=== PATIENT | female | born 1965 | race Caucasian/White ===

== ENCOUNTER → 2021-10-06 15:51 | Outpatient (CLI) | payer BC, SELFPAY ==
--- NOTE | 2021-10-08 14:53 | PC.NURSE ---
LM x1.
== END ==
PROVIDERS: Visit Provider Nurse Practitioner
DX: U07.1 COVID-19 (principal)
CPT/HCPCS: C9803; U0003; U0005

== ENCOUNTER 2025-04-06 18:47 | Emergency (ER) | payer BC, SELFPAY ==
[2025-04-06] VITALS (7 sets, daily range): BP systolic 143–187; BP diastolic 75–96; PULSE 65–80; RESP 11–18; TEMP 36.6–36.9; O2SAT 96–99; BMI 26.5
--- NOTE | 2025-04-06 18:55 | ECG_ITS ---
APPROVED REPORT Exam: Resting ECG HR:76 bpm ECG Measurements Heart Rate 76 AXES OR 150 P 52 QRSd 75 QRS 60 QT 379 T 33 QTc 410 Conclusion SINUS RHYTHM NONSPECIFIC T-WAVE ABNORMALITY BORDERLINE ECG WARNING: DATA QUALITY MAY AFFECT INTERPRETATION Electronically signed by : GUIDO WILCOX, 04/08/2025 12:39:00
[2025-04-06] MEDS: LACTATED RINGERS 1000ML 1,000 ML 999 ML IV (19:12)
[2025-04-06 19:17] LABS: Basophils % 0.3 % (0.1-2.0); Eosinophils % 0.4 % (0.1-12.0); Hematocrit 41.8 % (37.0-47.0); Hemoglobin 14.5 g/dL (12.2-16.2); Immature Granulocytes # 0.02 10^3uL; Immature Granulocytes % 0.2 %; Lymphocytes # 2.9 K/mm3 (0.7-4.5); Lymphocytes % 30.1 % (10-50); Mean Corpuscular HGB Conc 34.7 g/dL (31.8-35.4); Mean Corpuscular Hemoglobin 34.7 pg (27.0-31.2); Mean Platelet Volume 10.3 fl (7.4-10.4); Monocytes # 0.5 K/mm3 (0.1-1.0); Monocytes % 4.9 % (1.7-9.3); Neutrophils # 6.2 K/mm3 (1.8-7.8); Neutrophils % 64.1 % (37.0-80.0); Nucleated Red Blood Cells # 0 10^3/uL; Nucleated Red Blood Cells % 0 %; Platelet Count 214 K/mm3 (142-424); Red Blood Count 4.18 M/mm3 (4.20-5.40); Red Cell Distribution Width 12.9 % (11.5-17.5); Red Cell Distribution Width-SD 47.7 fL; White Blood Count 9.6 K/mm3 (4.8-10.8)
--- NOTE | 2025-04-06 19:17 | HMH.EDGENADL ---
Discharge Plan Disposition Patient Disposition: Home, Self-Care Prescriptions Prescriptions: New cefadroxil 500 mg capsule 500 mg PO BID 5 Days Qty: 10 0RF Referrals Follow up/Referrals: Teodoro Tong [Primary Care Provider, Medical] - See instructions Activity Restrictions/Add. Instructions Additional Instructions/Restrictions: Take antibiotics as prescribed. Follow-up with primary care doctor. Please return to the ER with any new, concerning, worsening symptoms. Clinical Impressions Clinical Impression: Dizziness UTI (urinary tract infection) Qualifiers: Urinary tract infection type: acute cystitis Hematuria presence: without hematuria Qualified Code(s): N30.00 - Acute cystitis without hematuria Print Language Print Language: Dominican Discharge ED Provider: Javon Buck General Adult HPI General Chief complaint: Dizziness Stated complaint: Dizziness Time Seen by Provider: 04/06/25 18:50 Mode of Arrival: Ambulatory Source of Information: Patient Description of Symptoms (Recalled from ER Triage Doc. by RN): pt presents to the ED with dizziness that started yesterday morning. pt reports nausea and having a poor appeite. pt reports that she gets really dizzy when she changes positions. No chest pain or shortness of breath noted. Pt hx of DVT and PE. History of Present Illness HPI narrative: This is a 59-year-old female with a history of VTE on Xarelto who presents with dizziness. States that it began yesterday morning. States that it is worse whenever she gets up and starts walking. Feels lightheaded and slightly unsteady. Denies any chest pain, shortness of breath, palpitations. States that she has not been eating or drinking very well lately. Related Data Previous Rx's ?Medication ?Instructions ?Recorded cefadroxil 500 mg capsule 500 mg PO BID 5 days #10 caps 04/06/25 Allergies Allergy/AdvReac Type Severity Reaction Status Date / Time No Known Allergies Allergy Verified 04/06/25 18:22 [facility] Disclaimer: The information contained in this section may have been updated after the patient was seen, as this information can be updated by other users. Medical History (Updated 04/06/25 @ 20:32 by Javon Buck MD) Dizziness Social History (Updated 04/06/25 @ 18:46 by Tami Araiza APRN) Smoking Status: Never smoker alcohol intake: never current occupational status: employed Travel in the last 8 weeks?: None Have you lived/traveled outside [place] in past 30 days?: No Contact w/someone who lives/traveled outside [place] past 30 days?: No Exposure to someone with infectious disease in past 14 days?: No Do you have a fever (greater than 100.4 F or 38 C)?: No Have you tested positive for COVID-19?: No Exposed to someone with COVID-19 in past 14 days?: No Do you have a sore throat?: No Do you have a cough?: No Do you have any weakness?: No Do you have any diarrhea?: No Are you experiencing any unusual bleeding?: No Do you have any muscle aches/pain?: No Do you have any abdominal pain?: No Are you experiencing loss of taste or smell?: No ROS Obtained: Yes All systems reviewed & no additional complaints except as documented Physical Exam General General appearance: alert and in no apparent distress Head Head exam: atraumatic Eye Eye exam: Present normal appearance, PERRL and EOMI Neck Neck exam: Present normal inspection and full ROM Chest Chest inspection: Present symmetric chest wall rise Respiratory Respiratory exam: Present normal lung sounds bilaterally; Absent respiratory distress Cardiovascular Cardiovascular exam: Present regular rate and normal rhythm Abdominal Exam Abdominal exam: Present soft; Absent distention Extremities Exam Extremities exam: Present normal inspection Neurological Exam Neurological exam: Present alert, oriented X3, normal gait and other (Negative Romberg) Psychiatric Psychiatric exam: Present normal affect and normal mood Skin Skin exam: Present warm and dry Medical Decision Making Medical Records Medical records reviewed: Yes I reviewed the patient's medical records. Screening: Per USPSTF and CDC recommendations, given the prevalence of disease in our region, it is our hospital?s policy to screen for HIV and viral Hepatitis for all patients aged 18 and over and those with ongoing risk factors. Iggy Inquiry Pt receiving controlled substance: No Vital Signs: 04/06/25 19:00 04/06/25 19:00 04/06/25 19:04 Temperature 98.5 F Temperature Source Oral Pulse Rate 77 70 Pulse Rate [Right] 80 Respiratory Rate 17 Blood Pressure 184/95 H 177/90 H Blood Pressure [Right Arm] 187/96 H Blood Pressure Mean Blood Pressure Mean [Right Arm] 126 Blood Pressure Source Blood Pressure Source [Right Arm] Automatic Cuff Blood Pressure Position Blood Pressure Position [Right Arm] Supine 02 Sat by Pulse Oximetry 99 98 98 Oxygen Delivery Method Room Air Room Air Room Air 04/06/25 19:05 04/06/25 19:15 04/06/25 19:31 Temperature 98.5 F Temperature Source Oral Pulse Rate 80 65 69 Pulse Rate [Right] Respiratory Rate 17 12 11 L Blood Pressure 187/96 H 153/87 H 143/75 H Blood Pressure [Right Arm] Blood Pressure Mean Blood Pressure Mean [Right Arm] Blood Pressure Source Automatic Cuff Blood Pressure Source [Right Arm] Blood Pressure Position Supine Blood Pressure Position [Right Arm] 02 Sat by Pulse Oximetry 99 98 96 Oxygen Delivery Method Room Air Room Air Room Air 04/06/25 20:36 04/06/25 20:38 Temperature 97.9 F Temperature Source Pulse Rate 80 Pulse Rate [Right] Respiratory Rate 18 Blood Pressure 151/88 H 151/88 H Blood Pressure [Right Arm] Blood Pressure Mean 116 Blood Pressure Mean [Right Arm] Blood Pressure Source Blood Pressure Source [Right Arm] Blood Pressure Position Blood Pressure Position [Right Arm] 02 Sat by Pulse Oximetry Oxygen Delivery Method Room Air Room Air Lab Data Lab Results 04/06/25 19:06: WBC 9.6, RBC 4.18 L, Hgb 14.5, Hct 41.8, MCV 100.0 H, MCH 34.7 H, MCHC 34.7, RDW 12.9, Plt Count 214, MPV 10.3, Neut % (Auto) 64.1, Lymph % (Auto) 30.1, Starke % (Auto) 4.9, Eos % (Auto) 0.4, Baso % (Auto) 0.3, Neut # (Auto) 6.2, Lymph # (Auto) 2.9, Starke # (Auto) 0.5, Eos # (Auto) 0.0, Baso # (Auto) 0.0, Sodium 140, Potassium 3.9, Chloride 107, Carbon Dioxide 29, Anion Gap 7.9, BUN 10, Creatinine 0.80, Estimated Creat Clear 79, Estimated GFR 73, Est GFR ( Amer) 89, Glucose 86, Calcium 9.1, Magnesium 2.2, Total Bilirubin 0.7, AST 22, ALT 16, Alkaline Phosphatase 107, Total Protein 7.3, Albumin 4.3, Globulin 3.0, Albumin/Globulin Ratio 1.4, HCV Ab TARAH w/Rflx PCR Qn Negative, HIV Ag/Ab Combo Qual Negative 04/06/25 19:53: Urine Color Yellow, Urine Appearance Clear, Urine pH 6.0, Ur Specific Sawyer 1.025, Urine Protein Negative, Urine Glucose (UA) Negative, Urine Ketones Negative, Urine Blood Negative, Urine Nitrate Positive A, Urine Bilirubin Negative, Urine Urobilinogen 0.2, Ur Leukocyte Esterase Negative, Urine RBC Occasional, Urine WBC 10-20, Ur Squamous Epith Cells 5-10, Urine Bacteria 4+ 04/06/25 19:06 04/06/25 19:06 Orders (Tests/Meds): ED MEDICATIONS Discontinued Medications Generic Name Dose Route Start Last Admin Trade Name Freq PRN Reason Stop Dose Admin Lactated Ringer's 1,000 mls @ 999 mls/hr 04/06/25 19:01 04/06/25 19:12 Lactated Ringer's 1000 Ml Bag IV 04/06/25 20:01 999 mls/hr .Q1H1M ONE Administration ORDERS Category Date Time Status CBC w/Auto Diff [Complete Blood Count Auto Diff] Stat Lab 04/06/25 19:06 Completed CMP [Comprehensive Metabolic Panel] Stat Lab 04/06/25 19:06 Completed HIV Combo Stat Lab 04/06/25 19:06 Completed Hepatitis C Ab Qual. W/ RFX Stat Lab 04/06/25 19:06 Completed Magnesium Stat Lab 04/06/25 19:06 Completed UA [Urinalysis and Microscopic] Stat Lab 04/06/25 19:53 Completed Urine Culture Stat Micro 04/06/25 19:53 Received ECG Data Tracing #1: I reviewed this ECG and interpreted as documented below: Normal sinus rhythm at a rate of 76, QTc 410, normal axis, no STEMI Medical Decision Narrative: In summary, this 59-year-old female with a history of VTE on Xarelto presents to the emergency department today with dizziness. On initial evaluation patient is afebrile, he medically stable, nontoxic-appearing. No nystagmus. Normal gait and negative Romberg. Differential diagnosis includes but is not limited to BPPV, orthostasis, dehydration, electrolyte abnormality. Based on these concerns, I ordered CBC, CMP, EKG. ECG personally interpreted as noted above. Patient received 1 L of lactated Ringer's for treatment. Labs personally reviewed demonstrate unremarkable CBC and CMP. On reassessment was ambulatory and in no acute distress. Reported improvement in symptoms. Appropriate for discharge with PCP follow-up. Critical Care Critical Care Time Critical Care Time: No
[2025-04-06 19:29] LABS: Albumin Level 4.3 g/dl (3.5-5.0); Chloride 107 mmol/L (98-107); Potassium 3.9 mmoL/L (3.5-5.1); Sodium 140 mmol/L (136-145)
[2025-04-06 19:31] LABS: Alanine Aminotransferase 16 U/L (12-78); Aspartate Amino Transferase 22 U/L (14-36); Blood Urea Nitrogen 10 mg/dl (7-17); Creatinine Clearance Estimated 79 mL/min (50-200); Estimated Glomerular Filt Rate 73 ml/min (>60); GFR (African American) 89 ML/MIN (>60)
[2025-04-06 19:32] LABS: Albumin/Globulin Ratio 1.4 (1.1-1.8); Alkaline Phosphatase 107 U/L (38-126); Anion Gap 7.9 mEq/L (5-15); Bilirubin,Total 0.7 mg/dl (0.2-1.3); Calcium 9.1 mg/dl (8.4-10.2); Carbon Dioxide 29 mmol/L (22.0-30.0); Glucose 86 mg/dl (74-100); Magnesium 2.2 mg/dl (1.6-2.3); Total Protein,Serum 7.3 g/dl (6.3-8.2)
--- NOTE | 2025-04-06 19:57 | PC.NURSE ---
Patient given a blanket and brought her back to it with her.
[2025-04-06 20:00] LABS: Microscopic, Urine URINE MICROSCOPIC (MICROSCOPIC)
[2025-04-06 20:05] LABS: Appearance,Urine CLEAR (Clear); Bilirubin,Urine Negative (Negative); Blood, Urine Negative (Negative); Color,Urine YELLOW (Yellow); Glucose,Urine (UA) Negative (Negative); Ketones,Urine Negative (Negative); Leukocyte Esterase,Urine Negative (Negative); Nitrate,Urine POSITIVE (Negative); Protein,Urine Negative (Negative); Specific Gravity, Urine 1.025 (1.005-1.030); Urobilinogen,Urine 0.2 EU/dl (0.2)
[2025-04-06 20:17] LABS: HIV Combo NEGATIVE (Negative)
[2025-04-06 20:25] LABS: Hepatitis C Ab Qual. W/ RFX NEGATIVE (Negative)
[2025-04-06 20:26] LABS: Bacteria,Urine 4+ /lpf; RBC,Urine Occasional #/hpf (0-3)
--- NOTE | 2025-04-09 16:41 | PC.NURSE ---
I discussed pt's urine culture with Dr Arias. She is on an appropriate abx, ntd.
== END 2025-04-06 20:43 | disposition home or self-care (01) ==
PROVIDERS: Emergency Provider Student in an Organized Health Care Education/Training Program; PCP Internal Medicine Cardiovascular Disease
DX: R42 Dizziness and giddiness (principal); N30.00 Acute cystitis without hematuria
CPT/HCPCS: 80053; 81001; 83735; 85025; 86803; 87086; 87088; 87186; 87389; 93005; 96360; 99284; J7120